=== PATIENT | female | born 1960 | race African-American/Black ===

== ENCOUNTER 2020-04-14 13:25 | Emergency (ER) | payer OTHER ==
[~2020-04-14] VITALS: Ht 162.6 cm; Wt 98.0 kg
[2020-04-14 15:10] LABS: ABSOLUTE NEUTROPHILS 2.9 thou/uL (1.4-8.2); BASOPHILS 0.9 % (0.0-2.0); EOSINOPHILS 2.7 % (0.0-3.0); HEMATOCRIT 32.7 % (37.0-47.0); LYMPHOCYTES 43.4 % (24.0-44.0); MCH 24.8 pg (26.0-34.0); MCHC 30.7 g/dL (28.0-37.0); MCV 80.7 fL (80.0-100.0); MONOCYTES 6.4 % (1.0-8.0); PLATELET COUNT 236 thou/uL (150-400); POLYS 46.6 % (36.0-66.0); RBC 4.05 mil/uL (4.20-5.00); RDW 16.5 % (10.5-14.5); WBC 6.3 thou/uL (4.0-11.0)
[2020-04-14 15:17] LABS: CALCIUM 9.9 mg/dL (8.5-10.1); POTASSIUM 3.8 mmol/L (3.5-5.1)
[2020-04-14 16:51] VITALS: BP 134/62
== END 2020-04-14 16:51 | disposition home or self-care (01) ==
LOC: ER 13:25
PROVIDERS: Emergency Medicine
DX: G43.909 Migraine, unspecified, not intractable, without status migrainosus (principal); Z86.718 Personal history of other venous thrombosis and embolism; Z88.5 Allergy status to narcotic agent